=== PATIENT | female | born 1995 | race Caucasian/White ===

== ENCOUNTER 2016-12-03 09:17 | Emergency (ER) | payer MEDICAID, OTHER ==
[~2016-12-03] VITALS: Ht 162.6 cm; Wt 50.0 kg
[~2016-12-03 09:17] MED LIST: NITR-58 PO
[2016-12-03 09:19] VITALS: Ht 162.6 cm; Wt 50.0 kg
[2016-12-03] MEDS ORDERED: HC30CR25 TOP (09:55)
[2016-12-03] MEDS ORDERED: LORA10TA3 PO (09:55)
[2016-12-03] MEDS ORDERED: DIPH25CA6 PO (09:57)
--- NOTE | 2016-12-03 14:07 | ERD ---
ER Documentation Chief Complaint Date/Time DATE: 12/03/16 TIME: 13:56 Chief Complaint BODY RASHES X 1WEEK HPI This is a 21-year-old female presents emergency department with body rash 1 week. Patient states she adopted a dog 1 month ago and puppy was infested with fleas. Dog was treated for fleas and patient continues to have itchy lesions over entire body. No fevers or chills. No new medications, foods, soaps or detergents. No sick contacts. ROS All systems reviewed and are negative except as per history of present illness. Medications Home Meds Active Scripts Diphenhydramine Hcl (Benadryl) 25 Mg Cap, 25 MG PO Q6, #10 CAP Prov:BUNNY KAMINSKI NP 12/03/16 Loratadine* (Loratadine*) 10 Mg Tablet, 10 MG PO DAILY, #10 TAB Prov:BUNNY KAMINSKI NP 12/03/16 Hydrocortisone* Topical (Hydrocortisone* Topical) 2.5%-28.3 Gm Cream..g., 1 APPLIC TOP BID, #1 TUB Prov:BUNNY KAMINSKI NP 12/03/16 Nitrofurantoin Monohyd Macrocr* (Macrobid*) 100 Mg Capsr, 100 MG PO BID for 7 Days, CAP Prov:MYRANDA IRENE NP 11/26/15 Allergies Allergies: Coded Allergies: No Known Allergy (Unverified , 12/03/16) PMhx/Soc Medical and Surgical Hx: pt denies Medical Hx, pt denies Surgical Hx History of Surgery: No Anesthesia Reaction: No Hx Neurological Disorder: No Hx Respiratory Disorders: No Hx Cardiac Disorders: No Hx Psychiatric Problems: No Hx Miscellaneous Medical Probl: No Hx Alcohol Use: No Hx Substance Use: No Hx Tobacco Use: No Smoking Status: Never smoker Physical Exam Vitals Vital Signs Date Time Temp Pulse Resp B/P Pulse Ox O2 Delivery O2 Flow Rate FiO2 12/03/16 09:19 98.4 70 19 114/69 98 Physical Exam Const: No acute distress, alert Head: Atraumatic Eyes: Normal Conjunctiva ENT: Normal External Ears, Nose and Mouth. Neck: Full range of motion..~ No meningismus. Resp: Clear to auscultation bilaterally Cardio: Regular rate and rhythm, no murmurs Abd: Soft, non tender, non distended. Normal bowel sounds Skin: small 1mm blanchable erythematous lesions with surrounding erythema and slight swelling. No drainage or weeping. No induration or abscess. Back: No midline or flank tenderness Ext: No cyanosis, or edema Neur: Awake and alert Psych: Normal Mood and Affect Procedures/MDM MDM: This is a 21-year-old female presenting to emergency department with generalized body rash 1 week. Patient has new dog at home that was diagnosed with fleas. Patient believes rash is related to this. Patient has generalized small 1 mm blanchable erythematous lesions with surrounding erythema and mild swelling. No induration or abscess. Vital signs are stable, patient remains afebrile. No shortness breath or difficulty breathing. No signs or symptoms of respiratory distress. No wheezing. Low suspicion for abscess or severe bacterial infection. Patient likely has insect bite. Patient is appropriate for outpatient management and will be given prescription for hydrocortisone cream, Benadryl tablets and loratadine. Instructed patient to follow-up with primary care provider in the next 2-3 days for reassessment. Return to ED for any high fever, chest pain, difficulty breathing, shortness breath, wheezing, vomiting, diarrhea, abdominal pain or any new or worsening symptoms. Patient verbalizes understanding. All questions answered at discharge. Departure Diagnosis: Primary Impression: Rash Condition: Stable Patient Instructions: Insect Bite Referrals: DANIELLE VERDE MD (PCP) [facility] YOU HAVE RECEIVED A MEDICAL SCREENING EXAM AND THE RESULTS INDICATE THAT YOU DO NOT HAVE A CONDITION THAT REQUIRES URGENT TREATMENT IN THE EMERGENCY DEPARTMENT. FURTHER EVALUATION AND TREATMENT OF YOUR CONDITION CAN WAIT UNTIL YOU ARE SEEN IN YOUR DOCTORS OFFICE WITHIN THE NEXT 1-2 DAYS. IT IS YOUR RESPONSIBILITY TO MAKE AN APPOINTMENT FOR FOLOW-UP CARE. IF YOU HAVE A PRIMARY DOCTOR --you should call your primary doctor and schedule an appointment IF YOU DO NOT HAVE A PRIMARY DOCTOR YOU CAN CALL OUR PHYSICIAN REFERRAL HOTLINE AT IF YOU CAN NOT AFFORD TO SEE A PHYSICIAN YOU CAN CHOSE FROM THE FOLLOWING [facility] CLINICS [facility] [address] [facility] [address] [facility]. [facility] [address] [facility] [address] [facility] [address] [facility]. [facility] [address] [facility]. [facility] YOU HAVE RECEIVED A MEDICAL SCREENING EXAM AND THE RESULTS INDICATE THAT YOU DO NOT HAVE A CONDITION THAT REQUIRES URGENT TREATMENT IN THE EMERGENCY DEPARTMENT. FURTHER EVALUATION AND TREATMENT OF YOUR CONDITION CAN WAIT UNTIL YOU ARE SEEN IN YOUR DOCTORS OFFICE WITHIN THE NEXT 1-2 DAYS. IT IS YOUR RESPONSIBILITY TO MAKE AN APPOINTMENT FOR FOLOW-UP CARE. IF YOU HAVE A PRIMARY DOCTOR --you should call your primary doctor and schedule and appointment IF YOU DO NOT HAVE A PRIMARY DOCTOR YOU CAN CALL OUR PHYSICIAN REFERRAL HOTLINE AT . IF YOU CAN NOT AFFORD TO SEE A PHYSICIAN YOU CAN CHOSE FROM THE FOLLOWING [facility] INSTITUTIONS: [facility] [address] [place] [address] [facility] [address] [place] [address] [facility] [address] [place] [address] Additional Instructions: Call your primary care doctor TOMORROW for an appointment during the next 2-3 days.See the doctor sooner or return here if your condition worsens before your appointment time. Return to ED for any high fever, chest pain, difficulty breathing, shortness breath, wheezing, vomiting, diarrhea, abdominal pain or any new or worsening symptoms. BUNNY KAMINSKI NP Dec 03, 2016 14:07
== END 2016-12-03 10:22 | disposition home or self-care (01) ==
LOC: FTE 09:17
DX: R21 Rash and other nonspecific skin eruption (principal)
CPT/HCPCS: 99283

== ENCOUNTER 2018-05-19 14:16 | Emergency (ER) | payer BC ==
[~2018-05-19] VITALS: Wt 50.4 kg
[~2018-05-19 14:16] MED LIST changes: +DIPH25CA6 PO; +HC30CR25 TOP; +LORA10TA3 PO
[2018-05-19] MEDS ORDERED: PREN-19 PO (16:31)
--- NOTE | 2018-05-19 16:33 | ERD ---
ER Documentation Chief Complaint Chief Complaint AP X 3 WEEKS HPI 22-year-old female presents with left lower abdominal pain for the last 2-3 weeks. She seen at a other clinic today and had a positive test. She is referred for evaluation of possible ectopic . She denies any fevers, vomiting. She does have nausea. Denies urinary complaints or vaginal bleeding. She is a G1 para 0. ROS All systems reviewed and are negative except as per history of present illness. Medications Home Meds Active Scripts Vit #76/Iron,Carb/FA (Prenatabs Rx Tablet) 1 Each Tablet, 1 EACH PO q day, #90 TAB Prov:ANITA OCONNELL MD 05/19/18 Diphenhydramine Hcl (Benadryl) 25 Mg Cap, 25 MG PO Q6, #10 CAP Prov:BUNNY KAMINSKI NP 12/03/16 Loratadine* (Loratadine*) 10 Mg Tablet, 10 MG PO DAILY, #10 TAB Prov:BUNNY KAMINSKI NP 12/03/16 Hydrocortisone* Topical (Hydrocortisone* Topical) 2.5%-28.3 Gm Cream..g., 1 APPLIC TOP BID, #1 TUB Prov:BUNNY KAMINSKI NP 12/03/16 Nitrofurantoin Monohyd Macrocr* (Macrobid*) 100 Mg Capsr, 100 MG PO BID for 7 Days, CAP Prov:MYRANDA IRENE NP 11/26/15 Allergies Allergies: Coded Allergies: No Known Allergy (Unverified , 12/03/16) PMhx/Soc Medical and Surgical Hx: pt denies Medical Hx, pt denies Surgical Hx History of Surgery: No Anesthesia Reaction: No Hx Neurological Disorder: No Hx Respiratory Disorders: No Hx Cardiac Disorders: No Hx Psychiatric Problems: No Hx Miscellaneous Medical Probl: No Hx Alcohol Use: No Hx Substance Use: No Hx Tobacco Use: No FmHx Family History: No diabetes, No coronary disease, No other Physical Exam Vitals Vital Signs Date Temp Pulse Resp B/P (MAP) Pulse Ox O2 O2 Flow FiO2 Time Delivery Rate 05/19/18 97.6 82 18 133/72 99 14:21 (92) Physical Exam Const: No acute distress Head: Atraumatic Eyes: Normal Conjunctiva ENT: Normal External Ears, Nose and Mouth. Neck: Full range of motion. No meningismus. Resp: Clear to auscultation bilaterally Cardio: Regular rate and rhythm, no murmurs Abd: Soft, minimal tenderness left lower abdomen. No tenderness McBurney's point no Fairchild sign. No rebound., non distended. Normal bowel sounds Skin: No petechiae or rashes Back: No midline or flank tenderness Ext: No cyanosis, or edema Neur: Awake and alert Psych: Normal Mood and Affect Result Diagram: 05/19/18 1518 Results 24 hrs Laboratory Tests Test 05/19/18 15:18 05/19/18 15:19 White Blood Count 8.9 10^3/ul Red Blood Count 4.59 10^6/ul Hemoglobin 14.1 g/dl Hematocrit 41.5 % Mean Corpuscular Volume 90.4 fl Mean Corpuscular Hemoglobin 30.7 pg Mean Corpuscular Hemoglobin Concent 34.0 g/dl Red Cell Distribution Width 12.5 % Platelet Count 230 10^3/UL Mean Platelet Volume 9.6 fl Immature Granulocytes % 0.200 % Neutrophils % 78.7 % Lymphocytes % 16.6 % Monocytes % 3.9 % Eosinophils % 0.3 % Basophils % 0.3 % Nucleated Red Blood Cells % 0.0 /100WBC Immature Granulocytes # 0.020 10^3/ul Neutrophils # 7.0 10^3/ul Lymphocytes # 1.5 10^3/ul Monocytes # 0.4 10^3/ul Eosinophils # 0.0 10^3/ul Basophils # 0.0 10^3/ul Nucleated Red Blood Cells # 0.0 10^3/ul Urine Color STRAW Urine Clarity CLEAR Urine pH 7.0 Urine Specific Sandwich 1.008 Urine Ketones 1+ mg/dL Urine Nitrite NEGATIVE mg/dL Urine Bilirubin NEGATIVE mg/dL Urine Urobilinogen NEGATIVE mg/dL Urine Leukocyte Esterase NEGATIVE Nina/ul Urine Hemoglobin NEGATIVE mg/dL Urine Glucose NEGATIVE mg/dL Urine Total Protein NEGATIVE mg/dl Beta HCG, Quantitative 3417.4 mIU/ml Procedures/MDM Patient is Rh+. Quantitative hCG is 3417. Pelvic ultrasound shows a questionable tiny intrauterine gestation sac. There is no adnexal masses or findings to suggest ectopic . Presents with left lower pelvic pain there is no 25 weeks duration. Differential includes early normal , ectopic , threatened . She will be discharged home with recommendations for 2-day hCG check. She should return sooner for fevers, vomiting, worsening pain, new worsening symptoms. She may take Tylenol for pain at home and we will initiate vitamins. Current signs or symptoms do not suggest appendicitis, surgical abdomen, additional emergent causes of abdominal pain. Departure Diagnosis: Primary Impression: Abdominal pain Abdominal location: lower abdomen, unspecified Qualified Codes: R10.30 - Lower abdominal pain, unspecified Condition: Stable Patient Instructions: Abdominal Pain, Early Referrals: [facility]IST [place] [address] [facility] [address] [place] [address] OFFICE FAX , [facility] [address] [place] [address] [facility] [address] [place] [address] [address]ONE, [facility] [address] [facility], [facility] [address], [facility] [address] [address] [facility] [address] [place] [address] [address] [address] [place] [address] [address] [facility] [address] [address] [facility] [address] [address]ONY, JANAE [address] [facility], [facility] [address] [address] [address] [place], [place] [id number] Additional Instructions: Recheck hormone level in 2 days. May be early normal , possible ectopic possible miscarriage. Recheck otherwise for fevers, worsening pain, new worsening symptoms. Okay to take Tylenol for pain. ANITA OCONNELL MD May 19, 2018 16:33
== END 2018-05-19 16:39 | disposition home or self-care (01) ==
LOC: FTE 14:16
DX: R10.32 Left lower quadrant pain (principal)
CPT/HCPCS: 36415; 76801; 76817; 81003; 84702; 85025; 86900; 86901

== ENCOUNTER 2018-05-21 10:31 | Emergency (ER) | payer BC ==
[~2018-05-21] VITALS: Wt 50.7 kg
[~2018-05-21 10:31] MED LIST changes: +PREN-19 PO
--- NOTE | 2018-05-21 12:23 | ERD ---
ER Documentation Chief Complaint Chief Complaint ABD PAIN, 5 WKS PG, VAG SPOTTING, HERE FOR RECHECK HPI 22-year-old female presents for recheck on lower abdominal pain and vaginal spotting. She had a gestational sac visible and quantitative hCG approximately 3400 days ago. She has minimal lower abdominal pain. Her left pain is resolved and now it is more in the right middle. Her spotting is improved. She denies fevers, vomiting, additional symptoms. She is a G1 para 0. ROS All systems reviewed and are negative except as per history of present illness. Medications Home Meds Active Scripts Vit #76/Iron,Carb/FA (Prenatabs Rx Tablet) 1 Each Tablet, 1 EACH PO q day, #90 TAB Prov:ANITA OCONNELL MD 05/19/18 Diphenhydramine Hcl (Benadryl) 25 Mg Cap, 25 MG PO Q6, #10 CAP Prov:BUNNY KAMINSKI NP 12/03/16 Loratadine* (Loratadine*) 10 Mg Tablet, 10 MG PO DAILY, #10 TAB Prov:BUNNY KAMINSKI NP 12/03/16 Hydrocortisone* Topical (Hydrocortisone* Topical) 2.5%-28.3 Gm Cream..g., 1 APPLIC TOP BID, #1 TUB Prov:BUNNY KAMINSKI NP 12/03/16 Nitrofurantoin Monohyd Macrocr* (Macrobid*) 100 Mg Capsr, 100 MG PO BID for 7 Days, CAP Prov:MYRANDA IRENE NP 11/26/15 Allergies Allergies: Coded Allergies: No Known Allergy (Unverified , 12/03/16) PMhx/Soc History of Surgery: No Anesthesia Reaction: No Hx Neurological Disorder: No Hx Respiratory Disorders: No Hx Cardiac Disorders: No Hx Psychiatric Problems: No Hx Miscellaneous Medical Probl: No Hx Alcohol Use: No Hx Substance Use: No Hx Tobacco Use: No FmHx Family History: No diabetes, No coronary disease, No other Physical Exam Vitals Vital Signs Date Temp Pulse Resp B/P (MAP) Pulse Ox O2 O2 Flow FiO2 Time Delivery Rate 05/21/18 97.6 67 17 113/60 100 10:35 (77) Physical Exam Const: No acute distress Head: Atraumatic Eyes: Normal Conjunctiva ENT: Normal External Ears, Nose and Mouth. Neck: Full range of motion. No meningismus. Resp: Clear to auscultation bilaterally Cardio: Regular rate and rhythm, no murmurs Abd: Soft, minimal suprapubic tenderness. No tenderness McBurney's point no Fairchild sign no rebound no masses. Non distended. Normal bowel sounds Skin: No petechiae or rashes Back: No midline or flank tenderness Ext: No cyanosis, or edema Neur: Awake and alert Psych: Normal Mood and Affect Result Diagram: 05/21/18 1059 Results 24 hrs Laboratory Tests Test 05/21/18 10:59 White Blood Count 7.5 10^3/ul Red Blood Count 4.47 10^6/ul Hemoglobin 13.7 g/dl Hematocrit 40.3 % Mean Corpuscular Volume 90.2 fl Mean Corpuscular Hemoglobin 30.6 pg Mean Corpuscular Hemoglobin Concent 34.0 g/dl Red Cell Distribution Width 12.4 % Platelet Count 222 10^3/UL Mean Platelet Volume 10.1 fl Immature Granulocytes % 0.300 % Neutrophils % 70.4 % Lymphocytes % 23.8 % Monocytes % 4.7 % Eosinophils % 0.3 % Basophils % 0.5 % Nucleated Red Blood Cells % 0.0 /100WBC Immature Granulocytes # 0.020 10^3/ul Neutrophils # 5.3 10^3/ul Lymphocytes # 1.8 10^3/ul Monocytes # 0.4 10^3/ul Eosinophils # 0.0 10^3/ul Basophils # 0.0 10^3/ul Nucleated Red Blood Cells # 0.0 10^3/ul Beta HCG, Quantitative 6265.8 mIU/ml Procedures/MDM Quantitative hCG today 6265. Pelvic ultrasound shows intrauterine gestation sac canal visible yolk sac. There is no appreciable signs of ectopic by the radiologist. Patient was stable and amatory throughout the course. Patient presents with intermittent migrating suprapubic or pelvic pain over the last few days. She has some spotting which is been intermittent and improving. She has signs of early normal , possibly symptoms of early miscarriage. Ectopic now less likely. Recommending further outpatient follow-up. She will be recommended to see RECONSTRUCTIVE DENTIST for care. She should consider repeat laboratory work and ultrasound for persistent pain in 3-4 days. Return sooner for fevers, vomiting, new or worsening symptoms. No current evidence to suggest ectopic , or signs of tubo-ovarian abscess, appendicitis, additional emergent causes of presenting complaints. Departure Diagnosis: Primary Impression: Abdominal pain during in first trimester Condition: Stable Patient Instructions: Abdominal Pain, Early Referrals: RECONSTRUCTIVE DENTIST [place] [address] [facility] [address] [place] [address] OFFICE FAX , [facility] [address] [place] [address] [address] [address] [place] [address] DR [address]ONE, [facility] [address] [facility], [address] [facility] [address] [address], [facility] [address] [place] [address] [facility] [address] [place] [address] [address] [facility] [address] [address], [facility] [address] [address] TONY, JANAE [address] [facility]. [address], [place] [address] [address] [address] [place], [place] [address] Additional Instructions: Ultrasound shows early developing and hormones are elevated consistent with normal . Ectopic less likely although continued follow- up and recommend RECONSTRUCTIVE DENTIST evaluation. Recheck for worsening bleeding, pain, new worsening symptoms. Consider recheck in 3-4 days for persistent bleeding, pain. ANITA OCONNELL MD May 21, 2018 12:23
== END 2018-05-21 12:35 | disposition home or self-care (01) ==
LOC: FTE 10:31
DX: O26.892 Other specified pregnancy related conditions, second trimester (principal); R10.30 Lower abdominal pain, unspecified; R10.2 Pelvic and perineal pain; Z3A.01 Less than 8 weeks gestation of pregnancy
CPT/HCPCS: 36415; 76801; 76817; 84702; 85025